=== PATIENT | male | born 1995 | race Caucasian/White ===

== ENCOUNTER → 2020-08-30 14:32 | Outpatient (BNVA) | payer SELFPAY | PROVIDERS: Family Provider Nurse Practitioner Family; PCP Nurse Practitioner Family; Visit Provider Nurse Practitioner Family | DX: Z11.59 Encounter for screening for other viral diseases (principal) | CPT/HCPCS: 87635 ==

== ENCOUNTER 2021-09-08 12:40 | Outpatient (CLI) | payer OTHER, SELFPAY ==
[2021-09-08 13:58] LABS: Pathology Referral Yes; Sperm Immotility 5 % (50-60); Sperm Non-Progressive Motility 5 % (5-10); Sperm Progressive Motility 90 % (31-34); Viscosity Semen Droplets; White Blood Count Semen 0-4 /hpf
[2021-09-08 14:02] LABS: Side 1 301; Side 2 311; Sperm Count 15.3 mill/mL (40-160)
== END 2021-09-08 12:41 | disposition home or self-care (01) ==
LOC: LAB 12:44
PROVIDERS: PCP Nurse Practitioner Family; Visit Provider Obstetrics & Gynecology
DX: N46.9 Male infertility, unspecified (principal)
CPT/HCPCS: 80500; 89320

== ENCOUNTER 2021-11-18 13:31 | Outpatient (CLI) | payer OTHER, SELFPAY ==
[2021-11-18 14:25] LABS: Viscosity Semen High Viscosity
[2021-11-18 14:32] LABS: Red Blood Count Semen Rare /hpf
[2021-11-18 14:33] LABS: Sperm Immotility 20 % (50-60)
[2021-11-18 14:36] LABS: Sperm Progressive Motility 50 % (31-34)
[2021-11-18 14:37] LABS: Sperm Non-Progressive Motility 30 % (5-10)
[2021-11-18 14:41] LABS: PH Semen 8.5 (7.0-8.0)
[2021-11-18 14:58] LABS: Side 1 103; Side 2 111
[2021-11-18 15:02] LABS: Sperm Count 10.7 mill/mL (40-160)
[2021-11-22 14:49] LABS: Pathology Referral Yes
== END 2021-11-18 13:32 | disposition home or self-care (01) ==
PROVIDERS: Visit Provider Obstetrics & Gynecology
DX: N46.9 Male infertility, unspecified (principal)
CPT/HCPCS: 80500; 89320

== ENCOUNTER 2022-05-19 13:28 | Outpatient (CLI) | payer OTHER, SELFPAY ==
[2022-05-19 15:18] LABS: PH Semen 7.5 (7.0-8.0); Side 1 54; Side 2 60; Viscosity Semen Droplets
[2022-05-19 15:19] LABS: Epithelial Count Semen 0-4 /hpf; Red Blood Count Semen 0-4 /hpf; Sperm Immotility 40 % (50-60); Sperm Non-Progressive Motility 10 % (5-10); Sperm Progressive Motility 50 % (31-34); White Blood Count Semen 0-4 /hpf
[2022-05-19 15:22] LABS: Pathology Referral Yes
== END 2022-05-19 13:29 | disposition home or self-care (01) ==
PROVIDERS: PCP Obstetrics & Gynecology; Visit Provider Urology
DX: R86.8 Other abnormal findings in specimens from male genital organs (principal)
CPT/HCPCS: 36415; 80503; 89320